=== PATIENT | male | born 1970 | race Caucasian/White ===

== ENCOUNTER 2023-02-24 07:57 | Emergency (ER) | payer OTHER ==
[~2023-02-24] VITALS: Ht 177.8 cm; Wt 79.5 kg
[2023-02-24] MEDS ORDERED: KETOROLAC TROMETHAMINE 60 MG/2 ML VIAL IM ONE (10:00)
[2023-02-24] MEDS ORDERED: METHOCARBAMOL 500 MG TABLET PO ONE (10:00)
[2023-02-24 11:00] VITALS: BP 125/78
[2023-02-24] MEDS ORDERED: IBUP-1492 PO (11:05)
[2023-02-24] MEDS ORDERED: METH-659 PO (11:05)
== END 2023-02-24 11:20 | disposition home or self-care (01) ==
LOC: EMS 08:08
DX: M54.50 Low back pain, unspecified (principal)
CPT/HCPCS: 99283; 96372; J1885